=== PATIENT | male | born 1965 | race Caucasian/White ===

== ENCOUNTER 2017-07-16 13:39 | Emergency (ER) | payer OTHER ==
[2017-07-16 13:58] VITALS: PULSE 90; O2SAT 98
[2017-07-16] MEDS ORDERED: Sodium Chloride 0.9% 500 ML IV STA (14:10)
--- NOTE | 2017-07-16 14:14 | ED PDOC ---
Arrival/HPI - General Chief Complaint: Male Genitourinary Time Seen by Provider: 07/16/17 14:01 Historian: Patient - History of Present Illness Time/Duration: Other (3 days) Symptom Onset: Gradual Symptom Course: Worsening Quality: Aching Severity Level: Moderate Activities at Onset: Rest Associated Symptoms (Text): 07/16/17 14:11 Patient complains of a three-day history of worsening right testicle pain and swelling. He reports foul-smelling urine, though no dysuria frequency urgency or hematuria. No low back pain. No fever, but some chills. There is no abdominal pain nausea vomiting or diarrhea. No injury or trauma. He has never experienced this previously. Past Medical History - Infectious Disease Hx of Infectious Diseases: None - Cardiac Hx Hypertension: Yes - Psychiatric Hx Substance Use: No - Anesthesia Hx Anesthesia: No Family/Social History - Physician Review Nursing Documentation Reviewed: Yes Family/Social History: Unknown Family HX Smoking Status: Light Smoker < 10 Cigarettes Daily Hx Alcohol Use: No Hx Substance Use: No Allergies/Home Meds Allergies/Adverse Reactions: Allergies No Known Allergies Allergy (Verified 07/16/17 13:58) Review of Systems - Physician Review All systems were reviewed & negative as marked: Yes - Review of Systems Constitutional: absent: Fatigue, Fevers Respiratory: Normal Cardiovascular: Normal Gastrointestinal: Normal Genitourinary Male: absent: Dysuria, Frequency, Hematuria Musculoskeletal: absent: Back Pain Neurological: absent: Headache, Dizziness, Focal Weakness Physical Exam Vital Signs Temp Pulse Resp BP Pulse Ox 07/16/17 13:54 98.6 F 90 16 140/96 H 98 Temperature: Afebrile Blood Pressure: Hypertensive Pulse: Regular Respiratory Rate: Normal Appearance: Positive for: Well-Appearing, Non-Toxic, Uncomfortable Pain Distress: Mild Mental Status: Positive for: Alert and Oriented X 3 - Systems Exam Head: Present: Atraumatic, Normocephalic Pupils: Present: PERRL Extroacular Muscles: Present: EOMI Conjunctiva: Present: Normal Mouth: Present: Moist Mucous Membranes Pharnyx: No: ERYTHEMA, EXUDATE, TONSILS ENLARGED Neck: Present: Normal Range of Motion Respiratory/Chest: Present: Clear to Auscultation, Good Air Exchange, Decreased Breath Sounds. No: Respiratory Distress, Accessory Muscle Use Cardiovascular: Present: Regular Rate and Rhythm, Normal S1, S2. No: Murmurs Abdomen: Present: Normal Bowel Sounds. No: Tenderness, Distention, Peritoneal Signs, Rebound, Guarding Genitourinary Male: Present: Normal External Genitalia, Circumcised Penis, Testicle Tenderness, Testicle Swelling, Other (right testicle swelling and tenderness with epididymal tenderness). No: Lesions, Penile Discharge, Penile Swelling, Masses, Erythema, Hernias Back: Present: Normal Inspection. No: CVA Tenderness Upper Extremity: Present: Normal Inspection. No: Cyanosis, Edema Lower Extremity: Present: Normal Inspection. No: Edema Neurological: Present: GCS=15, CN II-XII Intact, Speech Normal, Motor Func Grossly Intact Skin: Present: Warm, Dry, Normal Color. No: Rashes Medical Decision Making ED Course and Treatment: 07/16/17 14:17 History of hypertension, but he does not take medications as prescribed. TESTICULAR ULTRASOUND Dictator : Naeem Stark MD Report Date : 07/16/2017 15:51:42 IMPRESSION: Acute and unilateral right epididymitis. No evidence of orchitis or torsion. 07/16/17 16:00 Patient will be discharged home accompanied by family to follow up with urologist with antibiotics and nonsteroidals. - Lab Interpretations Lab Results: 07/16/17 14:30 07/16/17 14:30 Lab Results 07/16/17 14:30: Sodium 138, Potassium 4.2, Chloride 101, Carbon Dioxide 27, Anion Gap 14, BUN 14, Creatinine 1.0, Est GFR ( Amer) > 60, Est GFR (Non- Af Amer) > 60, Random Glucose 127 H, Calcium 9.8, Total Bilirubin 0.8, AST 36, ALT 54, Alkaline Phosphatase 69, Total Protein 7.7, Albumin 4.3, Globulin 3.4, Albumin/Globulin Ratio 1.3, Lipase 160 07/16/17 14:30: WBC 18.5 H, RBC 6.14 H, Hgb 16.5, Hct 48.2, MCV 78.5 L, MCH 26.9 , MCHC 34.2, RDW 14.0, Plt Count 242, MPV 10.0, Gran % 78.6 H, Lymph % (Auto) 14.2 L, [place] % (Auto) 6.1 H, Eos % (Auto) 0.9 L, Baso % (Auto) 0.2, Gran # 14.57 H, Lymph # 2.6, [place] # 1.1 H, Eos # 0.2, Baso # 0.03 - RAD Interpretation Radiology Orders: 07/16/17 14:10 TESTES DUPLEX COMPLETE [US] Stat Testicular ultrasound as read by the radiologist shows right epididymitis. Production Welding Supervisor: Radiologist - Medication Orders Current Medication Orders: Ciprofloxacin (Cipro 400mg/200ml Dsw) 400 mg in 200 mls @ 133.333 mls/hr IV STAT STA PRN Reason: Protocol Stop: 07/16/17 17:22 Discontinued Medications Sodium Chloride (Sodium Chloride 0.9%) 500 mls @ 1,000 mls/hr IV .Q30M STA Stop: 07/16/17 14:39 Last Admin: 07/16/17 14:22 Dose: 1,000 mls/hr eMAR Start Stop Document 07/16/17 14:22 OCS (Rec: 07/16/17 14:22 OCS [place] [id number]) Intravenous Solution Start Date 07/16/17 Start Time 14:22 Ketorolac Tromethamine (Toradol) 30 mg IVP STAT STA Stop: 07/16/17 14:11 Last Admin: 07/16/17 14:21 Dose: 30 mg MAR Pain Assessment Document 07/16/17 14:21 OCS (Rec: 07/16/17 14:21 OCS [place] [id number]) Pain Reassessment Is this a pain reassessment? Yes Sleep Is patient sleeping during reassessment? No Presence of Pain Presence of Pain Yes Pain Scale Used Pain Scale Used Numeric Location Left, Right or Bilateral Right Pain Location Body Site Groin Description Description Constant Intensity of Pain at present 5 Pain Behavior Moaning Aggravating Factors ADL's IVP Administration Document 07/16/17 14:21 OCS (Rec: 07/16/17 14:21 OCS [place] [id number]) Charges for Administration # of IVP Administrations 1 Disposition/Present on Arrival - Present on Arrival Any Indicators Present on Arrival: No History of DVT/PE: No History of Uncontrolled Diabetes: No Urinary Catheter: No History of Decub. Ulcer: No History Surgical Site Infection Following: None - Disposition Have Diagnosis and Disposition been Completed?: Yes Diagnosis: Epididymitis, Leukocytosis, Hypertension Disposition: HOME/ ROUTINE Disposition Time: 16:01 Patient Plan: Discharge Condition: GOOD Discharge Instructions (ExitCare): Epididymitis (ED), Testicle Pain (ED) Prescriptions: Ciprofloxacin HCl [Cipro] 500 mg PO BID #20 tab Naproxen [Naprosyn] 500 mg PO BID #14 tab Referrals: PCP,NO [Primary Care Provider] - Follow up with primary Severino Goodwin MD [Staff Provider] - Follow up with primary Forms: [employer] ([place])
[2017-07-16 14:42] LABS: BASO # 0.03 K/mm3 (0.0-2.0); BASO % 0.2 % (0.0-3.0); EOS # 0.2 (0.0-0.7); EOS % 0.9 % (1.5-5.0); GRAN # 14.57 (1.4-6.5); GRAN % 78.6 % (50.0-68.0); HEMATOCRIT 48.2 % (42.0-52.0); LYMPH # 2.6 (1.2-3.4); LYMPH % 14.2 % (22.0-35.0); MEAN CELL VOLUME 78.5 fl (80.0-105.0); MEAN CORPUSCULAR HEMOGLOBIN 26.9 pg (25.0-35.0); MEAN CORPUSCULAR HGB CONC 34.2 g/dl (31.0-37.0); MONO # 1.1 (0.1-0.6); MONO % 6.1 % (1.0-6.0); WHITE BLOOD COUNT 18.5 10^3/ul (4.5-11.0)
[2017-07-16 14:53] LABS: ALB/GLOB RATIO 1.3 (1.1-1.8); ALKALINE PHOSPHATASE 69 U/L (38-126); ALT/SGPT 54 U/L (7-56); AST/SGOT 36 U/L (17-59); BILIRUBIN,TOTAL 0.8 mg/dL (0.2-1.3); BLOOD UREA NITROGEN 14 mg/dL (7-21); CALCIUM 9.8 mg/dL (8.4-10.5); CARBON DIOXIDE 27 mmol/L (21-33); CHLORIDE 101 mmol/L (98-107); GFR AFRICAN-AMERICAN > 60; GLUCOSE,RANDOM 127 mg/dL (70-110); LIPASE 160 U/L (23-300); POTASSIUM 4.2 mmol/L (3.6-5.0); SODIUM 138 mmol/L (132-148); TOTAL PROTEIN 7.7 g/dL (5.8-8.3)
[2017-07-16] MEDS ORDERED: Ciprofloxacin 400mg/200ml D5W 400 MG/200 ML BAG IV STA (15:53)
--- NOTE | 2017-07-16 15:53 | US ---
HISTORY: right pain swelling TECHNIQUE: Realtime sonography through the scrotum with color and doppler flow. COMPARISON: None Available. FINDINGS: RIGHT TESTICLE: Measures 2.3 x 2.6 x 4 cm. Normal echotexture and flow. RIGHT EPIDIDYMIS: Epididymal head measures 1.1 x 2 x 1.3 cm. Enlarged, edematous and hypervascular right epididymal head consistent with acute epididymitis LEFT TESTICLE: Measures 1.7 x 2.5 x 4.3 cm. Normal echotexture and flow. LEFT EPIDIDYMIS: Epididymal head measures 1.2 x 0.9 cm. Grossly unremarkable appearance with normal flow. HYDROCELE: Small bilateral VARICOCELE: Unilateral, right OTHER FINDINGS: None. IMPRESSION: Acute and unilateral right epididymitis. No evidence of orchitis or torsion.
[2017-07-16 16:06] LABS: PH,URINE 6.5 (4.7-8.0); URINE BILIRUBIN NEGATIVE (NEGATIVE); URINE BLOOD TRACE-INTACT (NEGATIVE); URINE GLUCOSE (UA) NEGATIVE (NEGATIVE); URINE KETONE NEGATIVE (NEGATIVE); URINE LEUKOCYTE ESTERASE NEGATIVE Leu/uL (NEGATIVE); URINE PROTEIN TRACE mg/dL (<30 mg/dL); URINE UROBILINOGEN 0.2 E.U./dL (<1 E.U./dL)
[2017-07-16 16:07] LABS: URINE APPEARANCE CLEAR (CLEAR); URINE COLOR YELLOW (YELLOW)
[2017-07-16 16:24] LABS: URINE AMORPHOUS SEDIMENT FEW; URINE BACTERIA MANY (NEG)
[2017-07-16 16:27] VITALS: BP 128/81; RESP 20; TEMP 97.6
== END 2017-07-16 18:00 | disposition home or self-care (01) ==
LOC: ED 13:39
DX: N45.1 Epididymitis (principal); D72.829 Elevated white blood cell count, unspecified; I10 Essential (primary) hypertension; F17.210 Nicotine dependence, cigarettes, uncomplicated
CPT/HCPCS: 80053; 81001; 83690; 85025; 87086; 93975; 96374; 99284; J0744; J1885; J7040

== ENCOUNTER 2018-03-02 03:23 | Inpatient (IN) | payer MEDICAID, OTHER ==
[2018-03-02] MEDS ORDERED: Pantoprazole 40 mg EC Tab PO STA (03:36)
--- NOTE | 2018-03-02 03:41 | ED PDOC ---
Arrival/HPI - General Chief Complaint: Chest Pain Time Seen by Provider: 03/02/18 03:25 - History of Present Illness Narrative History of Present Illness (Text): 03/02/18 03:38 Patient is a 53 year old male with a past medical history of hypertension, NIDDM , and GERD, who presents to the Emergency department complaining of epigastric pain radiating up to the left and right side of his chest as well as his left shoulder. Patient says the pain started around 10 PM and gradually worsened. He also notes a "funny taste" in his mouth. Patient says he did not have anything to eat directly prior to having the pain but had a meal from [employer] earlier in the evening for dinner. He denies any associated shortness of breath, diaphoresis, palpitations, dizziness, and nausea. Patient says he does not take his hypertensive or diabetic medications everyday and only takes them when he feels like he needs to. He checks his blood glucose daily and says it has been running in the 120s-170s. PMH: hypertension, NIDDM, and GERD Meds: amlodipine, metformin, omeprazole Allergies: NKDA SH: smokes 1/2 PPD, denies alcohol and drug use (Avani Carlos) Past Medical History - Infectious Disease Hx of Infectious Diseases: None - Cardiac Hx Hypertension: Yes - Psychiatric Hx Substance Use: No - Anesthesia Hx Anesthesia: No Family/Social History Family/Social History: Unknown Family HX Smoking Status: Light Smoker < 10 Cigarettes Daily Hx Alcohol Use: No Hx Substance Use: No Allergies/Home Meds Allergies/Adverse Reactions: Allergies No Known Allergies Allergy (Verified 07/16/17 13:58) Home Medications: Home Meds Medication Instructions Recorded Confirmed Albuterol HFA [Ventolin HFA 90 2 puff INH QID PRN 03/02/18 03/02/18 mcg/actuation (8 g)] Review of Systems - Physician Review All systems were reviewed & negative as marked: Yes - Review of Systems Constitutional: Normal. absent: Fevers, Night Sweats Eyes: Normal. absent: Vision Changes ENT: Normal. absent: Hearing Changes Respiratory: Other (epigastric pain with deep breath). absent: SOB, Cough, Sputum, Wheezing Cardiovascular: Chest Pain. absent: Palpitations, Edema, Calf Pain, TANNER Gastrointestinal: Abdominal Pain (epigastric pain with deep breath), Other ( "funny taste" in mouth). absent: Constipation, Diarrhea, Nausea, Vomiting Genitourinary Male: Normal Musculoskeletal: Normal Skin: Normal Neurological: absent: Headache, Dizziness, Focal Weakness Endocrine: absent: Diaphoresis Physical Exam Vital Signs Reviewed: Yes Temperature: Afebrile Blood Pressure: Hypertensive Pulse: Tachycardic Respiratory Rate: Normal Appearance: Positive for: Well-Appearing, Non-Toxic, Uncomfortable Pain Distress: Moderate Mental Status: Positive for: Alert and Oriented X 3 - Systems Exam Head: Present: Atraumatic, Normocephalic Pupils: Present: PERRL Extroacular Muscles: Present: EOMI Conjunctiva: Present: Normal Mouth: Present: Moist Mucous Membranes Neck: Present: Normal Range of Motion. No: JVD Respiratory/Chest: Present: Clear to Auscultation, Good Air Exchange. No: Respiratory Distress, Accessory Muscle Use Cardiovascular: Present: Normal S1, S2, Tachycardic. No: Murmurs, Irregular Rhythm Abdomen: Present: Tenderness (epiagstric with deep palpation), Normal Bowel Sounds. No: Distention, Peritoneal Signs, Guarding, Hernias, Mass/Organomegaly Back: Present: Normal Inspection Upper Extremity: Present: Normal Inspection, Neurovascularly Intact. No: Cyanosis, Edema Lower Extremity: Present: Normal Inspection, Neurovascularly Intact. No: Edema , CALF TENDERNESS Neurological: Present: GCS=15, Speech Normal Skin: Present: Warm, Dry, Normal Color. No: Rashes Psychiatric: Present: Alert, Oriented x 3, Normal Insight, Normal Concentration Vital Signs Temp Pulse Resp BP Pulse Ox 03/02/18 03:23 98.6 F 105 H 18 147/106 H 97 Medical Decision Making ED Course and Treatment: Impression: Pt seen and evaluated with clinical medical transcriptionist. Pt, whose past medical history includes hypertension, NIDDM, and GERD, ho presents to the Emergency department complaining of epigastric pain radiating up to his chest. Aware and agree with HPI, clinical findings, plan, and management. Plan: -- EKG -- Chest X-ray -- Labs, cardiac enzymes -- Aspirin -- Protonix -- Reassess and disposition (Bishop Stoddard) 03/02/18 03:57 Plan: -CBC, CMP -Cardiac enzymes -ECG -Chest X-ray -Aspirin -Protonix ECG: normal sinus rhythm at 98 BPM; no ST degment changes 03/02/18 04:33 Will admit for observation given cardiac risk factors of hypertension, smoking, and diabetes. (Avani Carlos) - Lab Interpretations Lab Results: 03/02/18 03:40 03/02/18 03:40 Lab Results 03/02/18 03:42: POC Glucose (mg/dL) 125 H 03/02/18 03:40: Sodium 141, Potassium 3.8, Chloride 104, Carbon Dioxide 22, Anion Gap 18, BUN 15, Creatinine 1.1, Est GFR ( Amer) > 60, Est GFR (Non- Af Amer) > 60, Random Glucose 141 H, Calcium 10.0, Magnesium 1.9, Total Bilirubin 0.8, AST 29, ALT 56, Alkaline Phosphatase 61, Lactate Dehydrogenase 356, Total Creatine Kinase 284 H, CK-MB (CK-2) 1.9, CK-MB (CK-2) % Cancelled, Troponin I < 0.01, Total Protein 7.3, Albumin 4.2, Globulin 3.1, Albumin/ Globulin Ratio 1.3 03/02/18 03:40: WBC 12.3 H D, RBC 6.10, Hgb 15.9, Hct 46.8, MCV 76.7 L, MCH 26.1 , MCHC 34.0, RDW 13.8, Plt Count 260, MPV 10.2, Gran % 63.6, Lymph % (Auto) 29.2 , [place] % (Auto) 5.9, Eos % (Auto) 1.1 L, Baso % (Auto) 0.2, Gran # 7.83 H, Lymph # (Auto) 3.6 H, [place] # (Auto) 0.7 H, Eos # (Auto) 0.1, Baso # (Auto) 0.02 - RAD Interpretation Radiology Orders: 03/02/18 03:35 CHEST PORTABLE [RAD] Stat - Medication Orders Current Medication Orders: Discontinued Medications Aspirin (Aspirin) 325 mg PO STAT STA Stop: 03/02/18 03:38 Last Admin: 03/02/18 03:51 Dose: 325 mg Pantoprazole Sodium (Protonix Ec Tab) 40 mg PO STAT STA Stop: 03/02/18 03:37 Last Admin: 03/02/18 03:51 Dose: 40 mg - PA / MANAGER PROCUREMENT / Resident Statement MD/ has reviewed & agrees with the documentation as recorded. MD/ has examined the patient and agrees with the treatment plan. Disposition/Present on Arrival - Present on Arrival Any Indicators Present on Arrival: No History of DVT/PE: No History of Uncontrolled Diabetes: No Urinary Catheter: No History of Decub. Ulcer: No History Surgical Site Infection Following: None - Disposition Have Diagnosis and Disposition been Completed?: Yes Disposition Time: 04:36 Patient Plan: Admission - Disposition Diagnosis: Chest pain Disposition: HOSPITALIZED Condition: FAIR Discharge Instructions (ExitCare): Chest Pain (ED) Forms: [facility] (Czech)
[2018-03-02 04:07] LABS: ALB/GLOB RATIO 1.3 (1.1-1.8); ALBUMIN 4.2 g/dL (3.0-4.8); ALT/SGPT 56 U/L (7-56); AST/SGOT 29 U/L (17-59); BLOOD UREA NITROGEN 15 mg/dL (7-21); GFR AFRICAN-AMERICAN > 60; GFR NON-AFRICAN AMERICAN > 60
[2018-03-02 04:18] LABS: TROPONIN I < 0.01 ng/mL
[2018-03-02 04:21] LABS: BASO # 0.02 K/mm3 (0.0-2.0); BASO % 0.2 % (0.0-3.0); EOS # 0.1 (0.0-0.7); EOS % 1.1 % (1.5-5.0); GRAN # 7.83 (1.4-6.5); GRAN % 63.6 % (50.0-68.0); HEMOGLOBIN 15.9 g/dL (14.0-18.0); LYMPH # 3.6 (1.2-3.4); LYMPH % 29.2 % (22.0-35.0); MEAN CELL VOLUME 76.7 fl (80.0-105.0); MEAN CORPUSCULAR HEMOGLOBIN 26.1 pg (25.0-35.0); MEAN PLATELET VOLUME 10.2 fl (7.0-11.0); MONO # 0.7 (0.1-0.6); MONO % 5.9 % (1.0-6.0); RBC 6.1 10^6/uL (3.5-6.1); RED CELL DISTRIBUTION WIDTH 13.8 % (11.5-14.5); WHITE BLOOD COUNT 12.3 10^3/ul (4.5-11.0)
[2018-03-02 04:23] LABS: CK-MB 1.9 ng/mL (0.0-3.6)
[2018-03-02] MEDS ORDERED: Morphine 4 mg/ml ISec IVP STA (04:52)
[2018-03-02] MEDS ORDERED: Morphine 4 mg/ml ISec ONE (04:58)
--- NOTE | 2018-03-02 05:52 | CP.PCM.HP ---
<Maris Aragon - Last Filed: 03/02/18 05:53> History of Present Illness - History of Present Illness History of Present Illness: 53 year old [place] male with a past medical history of hypertension, DM II, GERD, active smoker with a 30 pack year history presenting with epigastric pain with radiation to the left and right chest without associated dyspnea or diaphoresis. He reports at 10 PM when he was driving home from work the pain developed and worsened when he lied down flat when he tried to go to bed. The pain was somewhat relieved with lying 60 degrees. He denies exertional dyspnea, nausea, diaphoresis, palpitations, or lower extremity edema. He reports not taking any of his medications as directed, only when he feels like it. Otherwise , 12 point ROS is benign. 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, 30 pack year history of smoking; drinks alcohol rarely; denies illicit drug use Present on Admission - Present on Admission Any Indicators Present on Admission: No Review of Systems - Review of Systems All systems: reviewed and no additional remarkable complaints except (as per HPI ) Past Patient History - Infectious Disease Hx of Infectious Diseases: None - Past Social History Smoking Status: Light Smoker < 10 Cigarettes Daily - CARDIAC Hx Hypertension: Yes - PSYCHIATRIC Hx Substance Use: No - ANESTHESIA Hx Anesthesia: No Meds Allergies/Adverse Reactions: Allergies Allergy/AdvReac Type Severity Reaction Status Date / Time No Known Allergies Allergy Verified 07/16/17 13:58 Physical Exam - Constitutional Appears: Non-toxic - Head Exam Head Exam: ATRAUMATIC, NORMOCEPHALIC - Eye Exam Eye Exam: EOMI, Normal appearance - ENT Exam ENT Exam: Mucous Membranes Moist, Normal Oropharynx - Neck Exam Neck exam: Positive for: Normal Inspection - Respiratory Exam Respiratory Exam: Clear to Auscultation Bilateral, NORMAL BREATHING PATTERN. absent: Accessory Muscle Use, Wheezes - Cardiovascular Exam Cardiovascular Exam: RRR, +S1, +S2 - GI/Abdominal Exam GI & Abdominal Exam: Tenderness (epigastric area) - Extremities Exam Extremities exam: Positive for: normal inspection. Negative for: calf tenderness - Back Exam Back exam: NORMAL INSPECTION. absent: CVA tenderness (L), CVA tenderness (R) - Neurological Exam Neurological exam: Alert, CN II-XII Intact, Oriented x3 - Psychiatric Exam Psychiatric exam: Normal Affect, Normal Mood - Skin Skin Exam: Dry, Intact, Normal Color, Warm Results - Vital Signs Recent Vital Signs: Last Vital Signs Temp 98.6 F 03/02/18 03:23 Pulse 105 H 03/02/18 03:23 Resp 18 03/02/18 03:23 BP 147/106 H 03/02/18 03:23 Pulse Ox 97 03/02/18 03:23 - Labs Result Diagrams: 03/02/18 03:40 03/02/18 03:40 Labs: Laboratory Results - last 24 hr 03/02/18 03/02/18 03/02/18 03:40 03:40 03:40 WBC 12.3 H D RBC 6.10 Hgb 15.9 Hct 46.8 MCV 76.7 L MCH 26.1 MCHC 34.0 RDW 13.8 Plt Count 260 MPV 10.2 Gran % 63.6 Lymph % (Auto) 29.2 [place] % (Auto) 5.9 Eos % (Auto) 1.1 L Baso % (Auto) 0.2 Gran # 7.83 H Lymph # (Auto) 3.6 H [place] # (Auto) 0.7 H Eos # (Auto) 0.1 Baso # (Auto) 0.02 Sodium 141 Potassium 3.8 Chloride 104 Carbon Dioxide 22 Anion Gap 18 BUN 15 Creatinine 1.1 Est GFR ( Amer) > 60 Est GFR (Non-Af Amer) > 60 POC Glucose (mg/dL) Random Glucose 141 H Calcium 10.0 Magnesium 1.9 Total Bilirubin 0.8 AST 29 ALT 56 Alkaline Phosphatase 61 Lactate Dehydrogenase 356 Total Creatine Kinase 284 H CK-MB (CK-2) 1.9 CK-MB (CK-2) % Cancelled Troponin I < 0.01 Total Protein 7.3 Albumin 4.2 Globulin 3.1 Albumin/Globulin Ratio 1.3 Lipase 177 03/02/18 03:42 WBC RBC Hgb Hct MCV MCH MCHC RDW Plt Count MPV Gran % Lymph % (Auto) [place] % (Auto) Eos % (Auto) Baso % (Auto) Gran # Lymph # (Auto) [place] # (Auto) Eos # (Auto) Baso # (Auto) Sodium Potassium Chloride Carbon Dioxide Anion Gap BUN Creatinine Est GFR ( Amer) Est GFR (Non-Af Amer) POC Glucose (mg/dL) 125 H Random Glucose Calcium Magnesium Total Bilirubin AST ALT Alkaline Phosphatase Lactate Dehydrogenase Total Creatine Kinase CK-MB (CK-2) CK-MB (CK-2) % Troponin I Total Protein Albumin Globulin Albumin/Globulin Ratio Lipase Assessment & Plan - Assessment and Plan (Free Text) Assessment: 53 year old [place] male with a past medical history of hypertension, DM II, GERD, active smoker with a 30 pack year history presenting with epigastric pain with radiation to the left and right chest without associated dyspnea or diaphoresis. EKG shows NSR and first troponin negative. Plan: 1) Atypical chest pain - Troponin's x 3 - EKG showed NSR, no ST-T wave changes - HgA1c, TSH, lipid panel - Cardiology consulted, Dr. Hubbard 2) GERD - Continue home Omeprazole - Educated patient on ways to reduce symptoms 3) Hypertension - Takes Amlodipine sporadically 4) DM II - Continue home Metformin 5) GI/DVT prophylaxis - Omeprazole - SCD case reviewed and discussed with Dr. Hubbard - Date & Time Date: 03/02/18 Time: 05:58 <Lety Hubbard - Last Filed: 03/02/18 06:50> Results - Vital Signs Recent Vital Signs: Last Vital Signs Temp 98.4 F 03/02/18 06:44 Pulse 95 H 03/02/18 06:44 Resp 18 03/02/18 06:44 BP 148/82 03/02/18 06:44 Pulse Ox 99 03/02/18 06:44 - Labs Result Diagrams: 03/02/18 03:40 03/02/18 03:40 Attending/Attestation - Attestation I have personally seen and examined this patient.: Yes I have fully participated in the care of the patient.: Yes I have reviewed all pertinent clinical information: Yes Notes (Text): 03/02/18 06:49 Agree with history , physical examination, assessment and plan. Patient was seen when he was in bed # 2 in the ER.
--- NOTE | 2018-03-02 06:07 | CT ---
EXAM: CT Abdomen and Pelvis Without Intravenous Contrast CLINICAL HISTORY: 53 years old, male; Pain; Abdominal pain; Epigastric; Additional info: Epigastric pain TECHNIQUE: Axial computed tomography images of the abdomen and pelvis without intravenous contrast. All CT scans at this facility use one or more dose reduction techniques, viz.: automated exposure control; ma/kV adjustment per patient size (including targeted exams where dose is matched to indication; i.e. head); or iterative reconstruction technique. Coronal and sagittal reformatted images were created and reviewed. COMPARISON: No relevant prior studies available. FINDINGS: Lung bases: There is minimal bibasilar atelectasis. ABDOMEN: Liver: There is a diffuse decrease in hepatic parenchymal density, consistent with fatty infiltration. Gallbladder and bile ducts: Unremarkable. No calcified stones. No ductal dilation. Pancreas: Unremarkable. No ductal dilation. Spleen: Unremarkable. No splenomegaly. Adrenals: Unremarkable. No mass. Kidneys and ureters: There are multiple right renal collecting system calcifications. The left kidney is normal. No hydronephrosis. Stomach and bowel: Unremarkable. No obstruction. No mucosal thickening.There is no wall thickening or pericolonic stranding to suggest colitis. PELVIS: Appendix: No findings to suggest acute appendicitis. Bladder: Unremarkable. No stones. Reproductive: Unremarkable as visualized. ABDOMEN and PELVIS: Intraperitoneal space: Unremarkable. No free air. No significant fluid collection. Bones/joints: No acute fracture. No dislocation. Soft tissues: Unremarkable. Vasculature: The vasculature demonstrates diffuse mild atherosclerotic calcification. No abdominal aortic aneurysm. Lymph nodes: Unremarkable. No enlarged lymph nodes. IMPRESSION: No evidence of an acute intra-abdominal or pelvic abnormality. Nephrolithiasis. No obstructive uropathy. Fatty liver.
[2018-03-02 07:58] LABS: HDL CHOLESTEROL 39 mg/dL (29-60)
[2018-03-02 08:09] LABS: LDL CHOLESTEROL 125 mg/dL (0-129); TROPONIN I < 0.01 ng/mL
--- NOTE | 2018-03-02 08:13 | RAD ---
HISTORY: CHEST PAIN COMPARISON: No prior. FINDINGS: LUNGS: No active pulmonary disease. PLEURA: No significant pleural effusion identified, no pneumothorax apparent. CARDIOVASCULAR: Normal. OSSEOUS STRUCTURES: No significant abnormalities. VISUALIZED UPPER ABDOMEN: Normal. OTHER FINDINGS: None. IMPRESSION: No active disease.
--- NOTE | 2018-03-02 08:53 | CARD ---
APPROVED REPORT EKG Measurement Heart [id number] <Conclusion> Normal sinus rhythm Normal ECG
[2018-03-02 09:30] VITALS: BMI 29.7
[2018-03-02] MEDS ORDERED: Iohexol 350 MG/100 ML VIAL ONE (11:00)
[2018-03-02] MEDS: Enoxaparin 40 mg Syringe SC SCH (11:24)
--- NOTE | 2018-03-02 11:33 | CON ---
DATE: 03/02/2018 CARDIOLOGY CONSULT REASON FOR CONSULTATION: Chest pain. HISTORY OF PRESENT ILLNESS: The patient is a 53-year-old [place] male, who is a smoker, smokes 1 pack per day. He stated that he has history of hypertension and diabetes mellitus, but both are controlled by diet. The patient is unaware of any prior cardiac history. He presented because of epigastric discomfort radiating to the lateral part of the chest and associated with shortness of breath. The chest discomfort is sharp and is initiated by deep breathing and coughing. The patient is also experiencing nonproductive cough. The patient denies any fever or chills. SOCIAL HISTORY: The patient is a smoker. He is . Lives with his . MEDICATIONS: Norvasc 10 mg once a day, Protonix 20 mg p.o. once a day. At home, the patient was on albuterol and omeprazole. REVIEW OF SYSTEMS: No fever or chills. No dizziness or syncope. PHYSICAL EXAMINATION: GENERAL: The patient is a middle-aged male, who does not appear to be in any acute distress. VITAL SIGNS: Blood pressure 148/82, heart rate 95, temperature 98.4, respirations 18. HEENT: Normocephalic. NECK: No JVD. CHEST: Clear. HEART: S1 and S2 regular. ABDOMEN: Soft. EXTREMITIES: No edema. LABORATORY DATA: EKG revealed normal sinus rhythm. SMA-7 is within normal limits except for glucose 141. Two sets of troponins are negative. Lipid profile is within normal limit. TSH level is within normal limit. Lipase is within normal limit. Hemoglobin and hematocrit 15.9 and 46.8, white count 12.3, platelet count 160,000. Abdomen and pelvis CT scan without p.o. or IV contrast revealed no evidence of acute intraabdominal or pelvic abnormality. Nephrolithiasis. No obstructive uropathy. Fatty liver. ASSESSMENT: 1. Chest pain, myocardial infarction is ruled out. 2. Rule out myocardial infarction. 3. Consider an underlying chronic obstructive lung disease. 4. Nephrolithiasis without obstructive uropathy. RECOMMENDATIONS: Continue amlodipine at 10 mg once a day, Protonix 20 mg once a day. Start subcutaneous Lovenox at 40 mg once a day, aspirin 81 mg once a day. Obtain chest CT angio. Rule out pulmonary embolism and/or underlying interstitial lung disease. The patient is also scheduled for an echocardiogram. Isaias Rene MD
[2018-03-02] MEDS ORDERED: Albuterol 0.5% Inhal Sol (2.5 mg/0.5 ml) UD IH PRN (12:24)
[2018-03-02] MEDS: Sucralfate 1 gm/10 ml Oral Susp UD PO SCH ×4 (12:54→22:49)
[2018-03-02] MEDS: Pantoprazole 40 mg EC Tab PO SCH ×2 (12:55→16:58)
--- NOTE | 2018-03-02 13:00 | CT ---
PROCEDURE: CT Chest with contrast (Pulmonary Angiogram) HISTORY: R/O PE, INTERSTITIAL LUNG DISEASE COMPARISON: None available. TECHNIQUE: Axial computed tomography images were obtained of the chest in the pulmonary arterial phase of enhancement. Coronal and sagittal reformatted images were created and reviewed. Intravenous contrast dose: 100 mL Omnipaque 350 Radiation dose: Total exam DLP = 536.99 mGy-cm. This CT exam was performed using one or more of the following dose reduction techniques: Automated exposure control, adjustment of the mA and/or kV according to patient size, and/or use of iterative reconstruction technique. FINDINGS: PULMONARY ARTERIES: Unremarkable. No pulmonary embolism. AORTA: No acute findings. No thoracic aortic aneurysm. LUNGS: Bilateral lower lobe linear scar/ atelectasis. No infiltrate. PLEURAL SPACES: Unremarkable. No effusion or pneuomothorax. HEART: Unremarkable. No cardiomegaly. No significant pericardial effusion. LYMPH NODES: No lymphadenopathy. BONES, CHEST WALL: Unremarkable. No fracture or destructive lesion OTHER FINDINGS: Unremarkable. IMPRESSION: No evidence of pulmonary embolism. Bilateral lower lobe linear scar/ atelectasis. Otherwise unremarkable.
[2018-03-02] MEDS ORDERED: Morphine 2 mg/ml ISec IVP ONE (13:43)
[2018-03-02] MEDS ORDERED: Sucralfate 1 gm/10 ml Oral Susp UD PO SCH (14:00)
--- NOTE | 2018-03-02 15:14 | CARD ---
APPROVED REPORT EXAM: Two-dimensional and M-mode echocardiogram with Doppler and color Doppler. 2D DIMENSIONS Left Atrium (2D)3.9 (1.6-4.0cm)IVSd1.2 (0.7-1.1cm) LVDd4.1 (3.9-5.9cm)PWd1.2 (0.7-1.1cm) LVDs2.9 (2.5-4.0cm)FS (%) 30.3 % LVEF (%)58.2 (>50%) M-Mode DIMENSIONS Aortic Root3.30 (2.2-3.7cm)Aortic Cusp Exc.1.90 (1.5-2.0cm) Aortic Valve AoV Peak Wdldtkzc058.0cm/Grey Peak GR.11mmHg Mitral Valve MV E Fhbosmhf74.2cm/sMV A Rzjxxzyn76.9cm/sE/A ratio0.8 TDI Lateral E' Peak V9.94cm/sMedial E' Peak V6.82cm/sE/Lateral E'6.5 E/Medial E'9.4 Pulmonary Valve PV Peak Kepekexw95.2cm/sPV Peak Grad.4mmHg Tricuspid Valve TR Peak Pfickgqq153cx/sRAP [id number] Peak Gr.19mmHg [id number] LEFT VENTRICLE The left ventricle is normal size. There is normal left ventricular wall thickness. The left ventricular function is normal. The left ventricular ejection fraction is within the normal range. There is normal LV segmental wall motion. Transmitral Doppler flow pattern is Grade I-abnormal relaxation pattern. RIGHT VENTRICLE The right ventricle is normal size. There is normal right ventricular wall thickness. The right ventricular systolic function is normal. ATRIA The left atrium size is normal. The right atrium size is normal. AORTIC VALVE The aortic valve is normal in structure. No aortic regurgitation is present. There is no aortic valvular stenosis. MITRAL VALVE The mitral valve is normal in structure. There is no mitral valve regurgitation noted. TRICUSPID VALVE There is trace tricuspid regurgitation. GREAT VESSELS The aortic root is normal in size. PERICARDIAL EFFUSION There is no pericardial effusion. <Conclusion> The left ventricle is normal size. There is normal left ventricular wall thickness. The left ventricular function is normal. The left ventricular ejection fraction is within the normal range. There is normal LV segmental wall motion. Transmitral Doppler flow pattern is Grade I-abnormal relaxation pattern.
[2018-03-02] MEDS ORDERED: Pantoprazole 40 mg EC Tab PO SCH (16:00)
[2018-03-02] MEDS: Simethicone 40 mg/0.6 ml Liquid (30 ml) PO SCH ×2 (17:01→22:49)
[2018-03-02] MEDS: cefTRIAXone 1 gm 1 GM/100 ML BAG IVPB SCH (18:03)
[2018-03-02] MEDS: metroNIDAZOLE IV 500 mg/100 ml 500 MG/100 ML BAG IVPB SCH ×2 (18:48→22:43)
[2018-03-02 20:24] LABS: VENOUS BLOOD GAS BASE EXCESS 0.3 mmol/L (0.0-2.0); VENOUS BLOOD GAS PO2 107 mm/Hg (30-55); VENOUS BLOOD PH 7.46 (7.32-7.43)
[2018-03-03] MEDS ORDERED: Pantoprazole 20 mg EC Tab PO SCH (06:00)
[2018-03-03] MEDS: metroNIDAZOLE IV 500 mg/100 ml 500 MG/100 ML BAG IVPB SCH ×2 (06:46→14:12)
[2018-03-03] MEDS: Pantoprazole 40 mg EC Tab PO SCH ×2 (06:46→17:31)
[2018-03-03 07:11] LABS: BASO # 0.02 K/mm3 (0.0-2.0); BASO % 0.2 % (0.0-3.0); EOS # 0.2 (0.0-0.7); EOS % 1.8 % (1.5-5.0); GRAN # 6.66 (1.4-6.5); GRAN % 60.7 % (50.0-68.0); HEMOGLOBIN 15.1 g/dL (14.0-18.0); LYMPH # 3.1 (1.2-3.4); LYMPH % 28.6 % (22.0-35.0); MEAN CELL VOLUME 76.8 fl (80.0-105.0); MEAN CORPUSCULAR HEMOGLOBIN 25.8 pg (25.0-35.0); MEAN CORPUSCULAR HGB CONC 33.6 g/dl (31.0-37.0); MONO % 8.7 % (1.0-6.0); RBC 5.85 10^6/uL (3.5-6.1)
[2018-03-03 07:29] LABS: ALB/GLOB RATIO 1.2 (1.1-1.8); ALT/SGPT 46 U/L (7-56); AST/SGOT 20 U/L (17-59); BLOOD UREA NITROGEN 16 mg/dL (7-21); CALCIUM 9.2 mg/dL (8.4-10.5); GFR AFRICAN-AMERICAN > 60; GFR NON-AFRICAN AMERICAN > 60
--- NOTE | 2018-03-03 09:05 | CT ---
PROCEDURE: CT Abdomen and Pelvis without intravenous contrast HISTORY: Abdominal pain, fever COMPARISON: None. TECHNIQUE: Unenhanced study. Neither oral nor intravenous contrast administered. Radiation dose: Total exam DLP = 1058.37 mGy-cm. This CT exam was performed using one or more of the following dose reduction techniques: Automated exposure control, adjustment of the mA and/or kV according to patient size, and/or use of iterative reconstruction technique. FINDINGS: LOWER THORAX: Unremarkable. LIVER: Unremarkable. No gross lesion or ductal dilatation. GALLBLADDER AND BILE DUCTS: Vicarious excretion of contrast in the gallbladder. Otherwise unremarkable PANCREAS: Unremarkable. No gross lesion or ductal dilatation. SPLEEN: Unremarkable. ADRENALS: Unremarkable. No mass. KIDNEYS AND URETERS: Two small less than 3 mm right renal calculi. No hydronephrosis. No solid mass. VASCULATURE: Unremarkable. No aortic aneurysm. BOWEL: Unremarkable. No obstruction. No gross mural thickening. APPENDIX: Unremarkable. Normal appendix. PERITONEUM: Unremarkable. No free fluid. No free air. LYMPH NODES: Unremarkable. No enlarged lymph nodes. BLADDER: Contrast in urinary bladder from prior CT scan. Otherwise unremarkable. REPRODUCTIVE: Unremarkable. BONES: No acute fracture. OTHER FINDINGS: None. IMPRESSION: Tiny nonobstructing right renal calculi. Additional benign and/or incidental findings described above.
[2018-03-03] MEDS: Enoxaparin 40 mg Syringe SC SCH (10:02)
[2018-03-03] MEDS: cefTRIAXone 1 gm 1 GM/100 ML BAG IVPB SCH (10:03)
[2018-03-03] MEDS: Sucralfate 1 gm/10 ml Oral Susp UD PO SCH ×4 (10:04→17:31)
[2018-03-03] MEDS: Simethicone 40 mg/0.6 ml Liquid (30 ml) PO SCH ×3 (10:20→18:11)
--- NOTE | 2018-03-03 15:10 | CP.PCM.PN ---
Subjective - Date & Time of Evaluation Date of Evaluation: 03/03/18 Time of Evaluation: 14:49 - Subjective Subjective: Patient is seen and examined at bedside. Doing well. Pain resolved. No other fevers since last night. No diarrhea. No vomiting. No chest pain Objective - Vital Signs/Intake and Output Vital Signs (last 24 hours): Temp Pulse Resp BP Pulse Ox 98 F 93 H 18 109/79 90 L 03/03/18 12:00 03/03/18 12:00 03/03/18 12:00 03/03/18 12:00 03/03/18 09:30 Intake and Output: 03/03/18 03/03/18 06:59 18:59 Intake Total 240 200 Balance 240 200 - Medications Medications: Current Medications Albuterol Sulfate (Albuterol 0.5% Inhal Leanna (2.5 Mg/0.5 Ml) Ud) 2.5 mg IH QID PRN PRN Reason: Shortness of Breath Amlodipine Besylate (Norvasc) 10 mg PO DAILY [facility] Last Admin: 03/03/18 10:02 Dose: 10 mg Aspirin (Aspirin Chewable) 81 mg PO DAILY [facility] Last Admin: 03/03/18 10:03 Dose: 81 mg Enoxaparin Sodium (Lovenox) 40 mg SC DAILY [facility] PRN Reason: Protocol Last Admin: 03/03/18 10:02 Dose: 40 mg Metronidazole (Flagyl) 500 mg in 100 mls @ 100 mls/hr IVPB Q8 [facility] PRN Reason: Protocol Last Admin: 03/03/18 14:12 Dose: 100 mls/hr Ceftriaxone Sodium (Rocephin 1 Gram Ivpb) 1 gm in 100 mls @ 100 mls/hr IVPB DAILY [facility] PRN Reason: Protocol Last Admin: 03/03/18 10:03 Dose: 100 mls/hr Pantoprazole Sodium (Protonix Ec Tab) 40 mg PO 0600,1600 [facility] Last Admin: 03/03/18 06:46 Dose: 40 mg Simethicone (Mylicon Liq) 40 mg PO QID [facility] Last Admin: 03/03/18 14:10 Dose: 40 mg Sucralfate (Carafate Oral Susp) 1 gm PO QID [facility] Last Admin: 03/03/18 14:14 Dose: 1 gm - Labs Labs: 03/03/18 06:00 03/03/18 06:00 - Constitutional Appears: Well - Head Exam Head Exam: ATRAUMATIC, NORMAL INSPECTION, NORMOCEPHALIC - Eye Exam Eye Exam: EOMI, Normal appearance, PERRL Pupil Exam: NORMAL ACCOMODATION, PERRL - ENT Exam ENT Exam: Mucous Membranes Moist, Normal Exam - Neck Exam Neck Exam: Full ROM, Normal Inspection. absent: Lymphadenopathy - Respiratory Exam Respiratory Exam: Clear to Ausculation Bilateral, NORMAL BREATHING PATTERN - Cardiovascular Exam Cardiovascular Exam: REGULAR RHYTHM, +S1, +S2. absent: Murmur - GI/Abdominal Exam GI & Abdominal Exam: Soft, Normal Bowel Sounds. absent: Tenderness - Extremities Exam Extremities Exam: Full ROM, Normal Capillary Refill, Normal Inspection. absent : Joint Swelling, Pedal Edema - Back Exam Back Exam: NORMAL INSPECTION - Neurological Exam Neurological Exam: Alert, Awake, CN II-XII Intact, Normal Gait, Oriented x3 - Psychiatric Exam Psychiatric exam: Normal Affect, Normal Mood - Skin Skin Exam: Dry, Intact, Normal Color, Warm Assessment and Plan (1) GERD (gastroesophageal reflux disease) Assessment & Plan: initially presented with chest pain. EKGs and Trops negative CTA negative for PE rule out Abdominal CT unremarkable GB US pending On cipro and flagyl Carafate and protonix Status: Chronic
--- NOTE | 2018-03-03 16:29 | US ---
HISTORY: Elevated bili Bishop, pain and fever. Duration of symptoms weeks COMPARISON: None. TECHNIQUE: Sonographic evaluation of the right upper quadrant of the abdomen. FINDINGS: LIVER: Measures 19.2 cm in length. Hepatopedal blood flow. Fatty infiltration manifest ultrasonographically as increased echogenicity of the liver parenchyma. No mass. No intrahepatic bile duct dilatation. GALLBLADDER: Unremarkable. No gallstones. COMMON BILE DUCT: Measures 8.5 mm. No stones. No dilatation. PANCREAS: Unremarkable as visualized. No mass. No ductal dilatation. RIGHT KIDNEY: Measures 4.7 x 10.6 cm in length. Normal echogenicity. No calculus, mass, or hydronephrosis. AORTA: No aneurysmal dilatation. IVC: Unremarkable. OTHER FINDINGS: None . IMPRESSION: Hepatomegaly/hepatic steatosis. Otherwise unremarkable study.
--- NOTE | 2018-03-03 18:01 | CP.PCM.DIS ---
Provider - Provider Date of Admission: 03/02/18 15:47 Attending physician: Jimi Preston MD Primary care physician: NO PRIMARY CARE PROVIDER Consults: Cardio - [place] Time Spent in preparation of Discharge (in minutes): 30 Hospital Course - Lab Results Lab Results: Most Recent Lab Values WBC 11.0 10^3/ul (4.5-11.0) 03/03/18 06:00 RBC 5.85 10^6/uL (3.5-6.1) 03/03/18 06:00 Hgb 15.1 g/dL (14.0-18.0) 03/03/18 06:00 Hct 44.9 % (42.0-52.0) 03/03/18 06:00 MCV 76.8 fl (80.0-105.0) L 03/03/18 06:00 MCH 25.8 pg (25.0-35.0) 03/03/18 06:00 MCHC 33.6 g/dl (31.0-37.0) 03/03/18 06:00 RDW 14.0 % (11.5-14.5) 03/03/18 06:00 Plt Count 229 10^3/uL (120.0-450.0) 03/03/18 06:00 MPV 10.0 fl (7.0-11.0) 03/03/18 06:00 Gran % 60.7 % (50.0-68.0) 03/03/18 06:00 Lymph % (Auto) 28.6 % (22.0-35.0) 03/03/18 06:00 Lander % (Auto) 8.7 % (1.0-6.0) H 03/03/18 06:00 Eos % (Auto) 1.8 % (1.5-5.0) 03/03/18 06:00 Baso % (Auto) 0.2 % (0.0-3.0) 03/03/18 06:00 Gran # 6.66 (1.4-6.5) H 03/03/18 06:00 Lymph # (Auto) 3.1 (1.2-3.4) 03/03/18 06:00 Lander # (Auto) 1.0 (0.1-0.6) H 03/03/18 06:00 Eos # (Auto) 0.2 (0.0-0.7) 03/03/18 06:00 Baso # (Auto) 0.02 K/mm3 (0.0-2.0) 03/03/18 06:00 pO2 107 mm/Hg (30-55) H 03/02/18 20:04 VBG pH 7.46 (7.32-7.43) H 03/02/18 20:04 VBG pCO2 33.0 (40-60) L 03/02/18 20:04 VBG HCO3 23.5 mmol/l (21-28) 03/02/18 20:04 VBG Total CO2 24.5 mmol.L (22-28) 03/02/18 20:04 VBG O2 Sat (Calc) 98.6 % (40-65) H 03/02/18 20:04 VBG Base Excess 0.3 mmol/L (0.0-2.0) 03/02/18 20:04 VBG Potassium 3.4 mmol/L (3.6-5.2) L 03/02/18 20:04 Sodium 134.0 mmol/L (132-148) 03/02/18 20:04 Chloride 104.0 mmol/L (98-107) 03/02/18 20:04 Glucose 134 mg/dl (75-110) H 03/02/18 20:04 Lactate 1.1 mmol/L (0.7-2.1) 03/02/18 20:04 FiO2 21.0 % 03/02/18 20:04 Sodium 143 mmol/L (132-148) 03/03/18 06:00 Potassium 3.5 mmol/L (3.6-5.0) L 03/03/18 06:00 Chloride 104 mmol/L (98-107) 03/03/18 06:00 Carbon Dioxide 25 mmol/L (21-33) 03/03/18 06:00 Anion Gap 17 (10-20) 03/03/18 06:00 BUN 16 mg/dL (7-21) 03/03/18 06:00 Creatinine 1.2 mg/dl (0.8-1.5) 03/03/18 06:00 Est GFR ( Amer) > 60 03/03/18 06:00 Est GFR (Non-Af Amer) > 60 03/03/18 06:00 POC Glucose (mg/dL) 93 mg/dL (65-110) 03/03/18 16:22 Random Glucose 121 mg/dL (70-110) H 03/03/18 06:00 Hemoglobin A1c 6.5 % (4.2-6.5) 03/02/18 07:40 Calcium 9.2 mg/dL (8.4-10.5) 03/03/18 06:00 Magnesium 1.9 mg/dL (1.7-2.2) 03/02/18 03:40 Total Bilirubin 1.4 mg/dL (0.2-1.3) H 03/03/18 06:00 AST 20 U/L (17-59) 03/03/18 06:00 ALT 46 U/L (7-56) 03/03/18 06:00 Alkaline Phosphatase 51 U/L (38-126) 03/03/18 06:00 Lactate Dehydrogenase 356 U/L (333-699) 03/02/18 03:40 Total Creatine Kinase 284 U/L (35-230) H 03/02/18 03:40 CK-MB (CK-2) 1.9 ng/mL (0.0-3.6) 03/02/18 03:40 CK-MB (CK-2) % Cancelled 03/02/18 03:40 Troponin I < 0.01 ng/mL 03/02/18 11:54 Total Protein 7.3 g/dL (5.8-8.3) 03/03/18 06:00 Albumin 4.0 g/dL (3.0-4.8) 03/03/18 06:00 Globulin 3.3 gm/dL 03/03/18 06:00 Albumin/Globulin Ratio 1.2 (1.1-1.8) 03/03/18 06:00 Triglycerides 94 mg/dL (35-160) 03/02/18 07:40 Cholesterol 178 mg/dL (130-200) 03/02/18 07:40 LDL Cholesterol Direct 125 mg/dL (0-129) 03/02/18 07:40 HDL Cholesterol 39 mg/dL (29-60) 03/02/18 07:40 Lipase 177 U/L (23-300) 03/02/18 03:40 TSH 3rd Generation 0.77 mIU/mL (0.46-4.68) 03/02/18 07:40 Venous Blood Potassium 3.4 mmol/L (3.6-5.2) L 03/02/18 20:04 - Hospital Course Hospital Course: 53yo male with history of hypertension, DM II, GERD, active smoker with a 30 pack year history presented to [facility] with c/o epigastric pain with radiation to the left and right chest. He reports the pain worsened when he lied down flat when he tried to go to bed. He was admitted for evaluation of chest pain with rule out of acute coronary syndrome. Troponin was negative x3, EKG revealed no acute ST-T wave changes. A CTA was completed and ruled out PE. Abdominal CT was unremarkable and a gallbladder ultrasound was notable only for hepatomegaly and hepatic steatosis. He was subsequently discharged with instructions to resume his omeprazole, norvasc and diabetes medication as well as carafate. He was instructed to follow up with his PMD within 1 week of discharge. Patient had any questions he had answered and instructions were provided. He was in agreement with discharge with follow up. Discharge Exam - Head Exam Head Exam: ATRAUMATIC, NORMAL INSPECTION, NORMOCEPHALIC - Eye Exam Eye Exam: EOMI, PERRL - ENT Exam ENT Exam: Mucous Membranes Moist - Respiratory Exam Respiratory Exam: Clear to PA & Lateral. absent: Rales, Rhonchi, Wheezes - Cardiovascular Exam Cardiovascular Exam: RRR, +S1, +S2. absent: Gallop, Rubs - GI/Abdominal Exam GI & Abdominal Exam: Normal Bowel Sounds, Soft. absent: Distended, Firm, Guarding, Hernia, Rebound, Tenderness - Neurological Exam Neurological exam: Alert, CN II-XII Intact, Oriented x3 - Psychiatric Exam Psychiatric exam: Normal Affect, Normal Mood - Skin Skin Exam: Dry, Intact, Normal Color, Warm Discharge Plan - Discharge Medications Prescriptions: Sucralfate [Carafate Oral Susp] 1 gm PO QID #1 bottle - Follow Up Plan Condition: FAIR Disposition: HOME/ ROUTINE Additional Instructions: 1. Please continue taking the following medications: Carafate 1g four times per day for 2 weeks Omeprazole 40mg twice daily for 2 weeks 2. Follow up with your primary doctor within 1 week 3. Return to the emergency room should you have worsening of your symptoms Referrals: PCP,NO [Primary Care Provider] -
[2018-03-03] MEDS ORDERED: Potassium Chloride 20 mEq ER Tab PO ONE (18:40)
[2018-03-03 18:59] VITALS: BP 117/78; PULSE 100; RESP 20; TEMP 98.4; O2SAT 96
--- NOTE | 2018-03-03 20:10 | PN ---
DATE: 03/03/2018 SUBJECTIVE: The patient denies any chest pain or shortness of breath at this time. OBJECTIVE: VITAL SIGNS: Blood pressure 109/79, heart rate 93, temperature 98, respiration 18. HEENT: Normocephalic. CHEST: Clear. HEART: S1, S2 regular. EXTREMITIES: No edema. LABORATORY DATA: Today's hemoglobin, hematocrit, white count, and platelet count are within normal limits. Today's SMA-7 is within normal limits except for potassium of 3.5 and glucose of 121. Total bilirubin is slightly elevated to 1.4. Gallbladder ultrasound: Hepatomegaly/hepatic steatosis; otherwise unremarkable. Echocardiographic study: Normal left ventricular size, wall thickness and ejection fraction, reduced diastolic compliance. ASSESSMENT: 1. Chest pain, myocardial infarction is ruled out. 2. Mild hypokalemia. 3. Hypertension. RECOMMENDATIONS: Continue current aspirin, Norvasc, subcutaneous Lovenox. I will administer K-Dur 20 mEq p.o. now. Patient can be discharged home from the cardiac point of view to be scheduled for stress test as an outpatient. Patient was strongly advised to abstain from smoking. Isaias Rene MD
== END 2018-03-03 19:14 | disposition home or self-care (01) | DRG 143 ==
LOC: ED 03:23 → ERH 06:07 → 2RSO 06:47 → OBSVTOIN 15:47
PROVIDERS: ADMIT Internal Medicine; ATTEND Internal Medicine
DX: R07.89 Other chest pain (principal); E87.6 Hypokalemia; J44.9 Chronic obstructive pulmonary disease, unspecified; K21.9 Gastro-esophageal reflux disease without esophagitis; F17.210 Nicotine dependence, cigarettes, uncomplicated; I10 Essential (primary) hypertension; E11.9 Type 2 diabetes mellitus without complications; N20.0 Calculus of kidney; Z79.84 Long term (current) use of oral hypoglycemic drugs